=== PATIENT | female | born 1950 | race Caucasian/White ===

== ENCOUNTER 2016-07-22 14:28 | Emergency (ER) | payer MEDICARE ==
--- NOTE | ~2016-07-22 | CR126 ---
[facility] A Service of [facility] & [facility] RADIOLOGY TEXT RESULTS PATIENT: TRU ABREU LOCATION: CFTX : 46 UNIT #: [id number] AGE: [address]: Nay Virk SEX: F ORDER DR: [id number] [facility] [address] [place], [place] [address] [id number] MR#: [id number] Acc #: [id number] NAME: TRU ABREU : 1950 SEX: F STUDY DATE/TIME: 07/22/2016 13:52 UNIT: [facility] ROOM: STUDY DESCRIPTION: CR Foot Complete Min 3 View Lt Attending Physician: Nay Virk P.A.-C. Ordering Physician: Nay Virk P.A.-C. Primary Care Physician: Flakita Urena M.D. MEDICAL IMAGING REPORT This report is preliminary unless electronic signature is present EXAM Left foot 3 views 07/22/2016 HISTORY 66-year-old female with left foot pain for 2 days. COMPARISON STUDIES No comparisons available FINDINGS No fracture or dislocation. Soft tissue structures are unremarkable. IMPRESSION Negative. Dictated by... Wilber Ansari M.D. THIS IS AN ELECTRONICALLY VERIFIED REPORT Wilber Ansari M.D. at 07/23/2016 10:00 AM Paola TD: 07/22/2016 17:41 JOB #: [id number] MEDICAL IMAGING REPORT Page 1 of 1 COPY
[~2016-07-22 14:28] MED LIST: ADVAIR 2501 DISK W/D PO; ALBUTEROL17 GM INH; ALPRAZOLAM PO; ALPRAZOLAM0.25 MG PO; AMOXICILLIN PO; ANTIVERT PO; ASPIRIN PO; AUGMENTIN PO; BUSPAR PO; CHERATUSSIN PO; COUMADIN7.5 MG PO; DARVOCET-N 1001 TAB PO; DIGOXIN125 MCG PO; K-DUR20 ME1 PO; KEFLEX500 MG PO; KLONOPIN PO; LAMICTAL PO; LASIX PO; LEXAPRO PO; LISINOPRIL PO; LISINOPRIL5 MG PO; LOPRESSOR100 MG PO; LOVASTATIN20 MG PO; METHIMAZOLE10 MG PO; NEXIUM PO; OMEPRAZOLE20 M2 PO; OSCAL PO; PATIENT'S PHARMACY; PERCOCET 5-3251 TAB PO; PRILOSEC PO; PROVENTIL INH; REMERON SOLTAB PO; TOPROL XL PO; TUMS PO; ULTRAM PO; ZOLOFT PO
== END 2016-07-22 15:04 | disposition home or self-care (01) ==
LOC: CFTX 14:28
DX: S96.212A Strain of intrinsic muscle and tendon at ankle and foot level, left foot, initial encounter (principal); I48.91 Unspecified atrial fibrillation; I50.9 Heart failure, unspecified; J44.9 Chronic obstructive pulmonary disease, unspecified; Z88.8 Allergy status to other drugs, medicaments and biological substances; W22.8XXA Striking against or struck by other objects, initial encounter; Y92.009 Unspecified place in unspecified non-institutional (private) residence as the place of occurrence of the external cause
CPT/HCPCS: 29405; 73630; 99283

== ENCOUNTER → 2016-09-30 | Outpatient (CLI) | payer MEDICARE ==
--- NOTE | ~2016-09-30 | MR10 ---
[facility] A Service of [facility] & [facility] RADIOLOGY TEXT RESULTS PATIENT: TRU ABREU GT LOCATION: CMRI : 46 UNIT #: [id number] AGE: [address]: Flakita Urena MD SEX: F ORDER DR: [id number] [facility] [address] [place], [place] [address] [id number] O MR#: [id number] Acc #: [id number] NAME: TRU ABREU : 1950 SEX: F STUDY DATE/TIME: 09/30/2016 18:49 UNIT: [facility] ROOM: STUDY DESCRIPTION: MR Ankle Wo Contrast Lt Attending Physician: Flakita Urena M.D. Referring Physician: Flakita Urena M.D. Ordering Physician: Flakita Urena M.D. Primary Care Physician: Flakita Urena M.D. MRI CENTER REPORT This report is preliminary unless electronic signature is present. EXAM MRI left ankle, hindfoot and midfoot without contrast, 09/30/2016 HISTORY Order states MRI left foot and ankle. No contrast. Pain, swelling for 6 weeks status post injury. History sheet states her 82 pound pit bull stepped on her left foot 7 weeks ago. Pain distal metatarsals and first MPJ area. Swelling in foot and bruising in the ankle on both sides. Patient says bruising in the ankle could be from wearing a boot. Very little pain in ankle. Most pain is at the top of the foot where the beads are located. Patient declined further imaging beyond the sequences obtained due to claustrophobia and pain. No reported ankle or foot surgery. COMPARISON Left foot radiographs, 07/22/2016 FINDINGS The markers are located along the dorsum of the foot at the level of the distal metatarsals. There is moderate marrow edema of the distal shaft of the first metatarsal extending into the metatarsal neck and the proximal head. No fracture line is noted. Findings are most suggestive of a bone contusion. There is adjacent arthritic change of the first MTP joint which is moderate in degree. There is also marrow edema of the head and neck of the fifth metatarsal without a visible fracture. Bone contusion is likely. There is minimal marrow edema of the second, third and fourth metatarsal heads without a fracture. Minimal bone contusion is again suspected. [facility] A Service of [facility] RADIOLOGY TEXT RESULTS PATIENT: TRU ABREU LOCATION: [facility] : 46 UNIT #: [id number] AGE: [address]: Flakita Urena MD SEX: F ORDER DR: There is dorsal foot subcutaneous inflammation especially in the midfoot and forefoot. The included portions of the toes are unremarkable. Midfoot alignment and Lisfranc ligament are normal. There is minimal arthritic change of the third tarsometatarsal joint. Tibiotalar joint is unremarkable. Ankle ligaments are unremarkable. Ankle tendons are normal. Plantar fascia is intact. Inflammation in the plantar heel pad medially is nonspecific. Sinus tarsi and tarsal tunnel are unremarkable. There is no marrow lesion, fracture, or muscle atrophy. IMPRESSION 1. Presumed bone contusions of the metatarsal heads, especially first and fifth. No fracture line is identified. 2. Moderate first MTP joint arthrosis. 3. Largely dorsal subcutaneous inflammation. 4. No ankle or hindfoot abnormality. 5. Minimal midfoot arthrosis. Dictated by... Tabatha Correa M.D. THIS IS AN ELECTRONICALLY VERIFIED REPORT Tabatha Correa M.D. at 10/02/2016 8:33 AM Neeta TD: 10/01/2016 18:16 JOB #: [id number] MRI CENTER REPORT Page 1 of 1 COPY
== END | disposition home or self-care (01) ==
LOC: CMRI 18:11
DX: M25.572 Pain in left ankle and joints of left foot (principal); M79.672 Pain in left foot; M79.89 Other specified soft tissue disorders; M25.472 Effusion, left ankle; M19.072 Primary osteoarthritis, left ankle and foot; L08.9 Local infection of the skin and subcutaneous tissue, unspecified
CPT/HCPCS: 73721